=== PATIENT | female | born 1980 | race Caucasian/White ===

== ENCOUNTER 2016-08-19 12:07 | Emergency (ER) | payer OTHER ==
[~2016-08-19] VITALS: Ht 160 cm; Wt 100.7 kg
[~2016-08-19 12:07] MED LIST: NEOM1SUS21 OP
[2016-08-19 12:10] VITALS: TEMP 37; Ht 160 cm; Wt 100.7 kg
[2016-08-19 13:10] VITALS: O2SAT 97
--- NOTE | 2016-08-19 13:10 | EMERGENCY ROOM VISIT NOTE ---
History First contact with patient: 12:49 Chief Complaint: CHEST PAIN Stated Complaint: CHEST PAIN, DIZZY, FORGETTING, CANT THINK Nursing Triage Summary: pt c/o pain around L breast and into L upper back and L arm, pt states pain is worse when she is stressed, pt states the pain is worse when she lays on L side and makes the pain worse, pt states it comes and goes, denies any injury, pt states she tires quickly History of Present Illness The patient is a 36 year old female who presents to the Emergency Room via private vehicle accompanied by daughter with complaints of "chest pain, dizzy, forgetting, can't think". The patient states that she has been stressed recently at her job, and of last week and Tuesday she felt anxious and jittery as well as nervous. She notes that she developed chest pain Tuesday into Tuesday. 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 She states that the chest pain has been intermittent but is continuing. She states last night she felt tired, and the left anterior chest pain worsened and radiates to her left back and down her left arm. 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 She also has intermittent headache and neck pain. She also feels tired. Sometimes she will feel dizzy. She rates the left anterior chest pain currently as a 5/10. She describes the pain as stabbing at times. She denies any shortness of breath, recent falls, injury, fevers, chills, history of blood clots, smoking, control, history of heart disease. She states that she will feel anxious when she is stressed. Review of Systems A complete 10-point Review of Systems was discussed with the patient, with pertinent positives and negatives listed in the History of Present Illness. All remaining Review of Systems questions can be considered negative unless otherwise specified. Past Medical/Surgical History Arm surgery in 2010 Family History Diabetes, high blood pressure, kidney disease or stones. Social History Smoking Status: Never Smoker Social History: Patient lives with daughter. She denies alcohol and tobacco use. Current/Historical Medications No Active Prescriptions or Reported Meds Allergies Coded Allergies: No Known Allergies (Unverified , 08/19/16) Physical Exam Vital Signs Date Time Temp Pulse Resp B/P Pulse Ox O2 Delivery O2 Flow Rate FiO2 08/19/16 17:00 60 18 128/68 99 Room Air 08/19/16 16:00 62 18 122/79 99 Room Air 08/19/16 15:49 57 08/19/16 15:00 62 20 120/74 99 Room Air 08/19/16 13:30 59 20 115/62 69 134/88 80 108/83 08/19/16 13:20 56 08/19/16 13:10 97 Room Air 08/19/16 12:10 37.0 102 20 129/96 97 Room Air Physical Exam VITAL SIGNS - Vital signs and nursing notes were reviewed. Patient is afebrile , normotensive, slightly tachycardic at a rate of 102 bpm and is saturating well on room air at 97%. GENERAL -36-year-old female appearing her stated age who is in no acute distress. Patient is nontoxic in appearance. There is a slight language barrier, and her daughter helps to translate and was present in the room upon my examination. Communicates well with provider and answers questions appropriately. SKIN - Without rashes. No petechial rashes. HEAD - NC/AT. EYES - PERRL with EOMI bilaterally. Sclera anicteric. Palpebral conjunctiva pink and moist with no injection noted. EARS - No deformities of external structures noted on gross examination bilaterally. No pain elicited with palpation of the tragus bilaterally. External auditory canals without discharge or otorrhea. Tympanic membranes pearly alarcon without retraction or bulging. No fluid or purulent material visualized behind the TM. Handle of malleus, umbo, cone of light, pars tensa/ flaccid all easily visualized. NOSE - Midline and without cyanosis. No epistaxis or purulent drainage noted. Septum midline without deviation or septal hematoma noted. MOUTH/OROPHARYNX - Without perioral cyanosis. Buccal mucosa pink and moist and without leukoplakia. Tongue midline with equal elevation of palate bilaterally. No tonsillar hypertrophy, erythema, or exudates noted. Fair dentition noted. NECK - Neck with FROM. Supple to palpation. No lymphadenopathy noted. No nuchal rigidity. No evidence of meningitis or encephalitis upon exam. The patient moves the head and neck without difficulty. LUNGS - Chest wall symmetric without accessory muscle use, intercostals retractions, or central cyanosis. Normal vesicular breath sounds CTA B/L. No wheezes, rales, or rhonchi appreciated. CARDIAC - RRR with S1/S2. No murmur, rubs, or gallops appreciated. Slight reproducible pain with palpation of the left anterior/left lateral chest. ABDOMEN - Abdominal contour without pulsations or visible masses. BS normoactive all four quadrants. No tenderness, palpable masses, hepatosplenomegaly, or ascites noted. EXTREMITIES - No clubbing or peripheral cyanosis. No pretibial edema present. + 5/5 strength noted in UE/LE bilaterally. NEUROLOGIC - Cranial nerves II through XII grossly intact. Sensory intact to light touch throughout. PSYCH - A&Ox3 and cooperates fully with examiner. Pt is very pleasant and interacts well with examiner. Medical Decision & Procedures ER Provider Diagnostic Interpretation: CHEST 2 VIEWS ROUTINE HISTORY: Atypical Chest pain COMPARISON: Chest 12/10/2011. FINDINGS: The lungs are clear. Cardiac silhouette is normal in size. No pleural effusions. No pneumothorax. IMPRESSION: No acute process. Electronically signed by: Jac Garner M.D. 08/19/2016 2:30 PM Dictated Date/Time: 08/19/2016 2:29 PM Laboratory Results 08/19/16 13:25 Red Blood Count 4.65, Mean Corpuscular Volume 85.6, Mean Corpuscular Hemoglobin 29.9, Mean Corpuscular Hemoglobin Concent 34.9, Mean Platelet Volume 11.2, Neutrophils (%) (Auto) 47.0, Lymphocytes (%) (Auto) 43.5, Monocytes (%) (Auto) 6.3, Eosinophils (%) (Auto) 2.5, Basophils (%) (Auto) 0.5, Neutrophils # (Auto) 3.77, Lymphocytes # (Auto) 3.50, Monocytes # (Auto) 0.51, Eosinophils # (Auto) 0.20, Basophils # (Auto) 0.04 08/19/16 13:25 Test 08/19/16 13:03 08/19/16 13:25 08/19/16 13:35 08/19/16 15:14 White Blood Count 8.04 K/uL (4.8-10.8) Red Blood Count 4.65 M/uL (4.2-5.4) Hemoglobin 13.9 g/dL (12.0-16.0) Hematocrit 39.8 % (37-47) Mean Corpuscular Volume 85.6 fL (80-100) Mean Corpuscular Hemoglobin 29.9 pg (25-34) Mean Corpuscular Hemoglobin Concent 34.9 g/dl (32-36) Platelet Count 260 K/uL (130-400) Mean Platelet Volume 11.2 fL (7.4-10.4) Neutrophils (%) (Auto) 47.0 % Lymphocytes (%) (Auto) 43.5 % Monocytes (%) (Auto) 6.3 % Eosinophils (%) (Auto) 2.5 % Basophils (%) (Auto) 0.5 % Neutrophils # (Auto) 3.77 K/uL (1.4-6.5) Lymphocytes # (Auto) 3.50 K/uL (1.2-3.4) Monocytes # (Auto) 0.51 K/uL (0.11-0.59) Eosinophils # (Auto) 0.20 K/uL (0-0.5) Basophils # (Auto) 0.04 K/uL (0-0.2) RDW Standard Deviation 42.3 fL (36.4-46.3) RDW Coefficient of Variation 13.5 % (11.5-14.5) Immature Granulocyte % (Auto) 0.2 % Immature Granulocyte # (Auto) 0.02 K/uL (0.00-0.02) Prothrombin Time 11.3 SECONDS (9.0-12.0) Prothromb Time International Ratio 1.1 (0.9-1.1) Activated Partial Thromboplast Time 29.1 SECONDS (21.0-31.0) Partial Thromboplastin Ratio 1.1 Anion Gap 11.0 mmol/L (3-11) Est Creatinine Clear Calc Drug Dose 128.9 ml/min Estimated GFR () 129.2 Estimated GFR (Non- 111.5 BUN/Creatinine Ratio 18.2 (10-20) Calcium Level 8.5 mg/dl (8.5-10.1) Total Bilirubin 0.5 mg/dl (0.2-1) Aspartate Amino Transf (AST/SGOT) 13 U/L (15-37) Alanine Aminotransferase (ALT/SGPT) 16 U/L (12-78) Alkaline Phosphatase 70 U/L (45-117) Total Protein 7.1 gm/dl (6.4-8.2) Albumin 3.3 gm/dl (3.4-5.0) Globulin 3.8 gm/dl (2.5-4.0) Albumin/Globulin Ratio 0.9 (0.9-2) Lipase 206 U/L (73-393) Thyroid Stimulating Hormone (TSH) 2.560 uIu/ml (0.300-4.500) Urine Color YELLOW Urine Appearance CLEAR (CLEAR) Urine pH 5.5 (4.5-7.5) Urine Specific [employer] 1.022 (1.000-1.030) Urine Protein NEG (NEG) Urine Glucose (UA) NEG (NEG) Urine Ketones NEG (NEG) Urine Occult Blood NEG (NEG) Urine Nitrite NEG (NEG) Urine Bilirubin NEG (NEG) Urine Urobilinogen NEG (NEG) Urine Leukocyte Esterase NEG (NEG) Bedside D-Dimer 193 ng/mlFEU (0-450) Bedside Troponin I 0.000 ng/ml (0-0.045) Medical Decision Patient was seen and evaluated as above. After obtaining a thorough history and physical examination the above workup was initiated. There was concern for cardiac and neurological causes therefore attention was directed at these regions. Chest x-ray results as above. I agree with radiologist findings. The initial troponin, and point care d-dimer were negative. The patient doesn' t have any significant risk factors for pulmonary embolism. No history of cardiac events. EKG reveals normal sinus rhythm, with sinus arrhythmia Rate of 69 bpm, without ectopy or ischemic change. EKG was then later repeated and revealed sinus bradycardia, rate of 53 bpm without ectopy or ischemic change. With the troponin, and d-dimer being negative without any evidence of EKG change I do not suspect any emergent causes, however in correlation with my attending examination do also feel that a stress echo would be warranted. My attending did speak with Dr. Waters, the assembly repairer and it was decided that the patient could have an echo tomorrow morning at 9, which was later changed to 10 AM so that prior authorization could be obtained. I do believe this is reasonable, given the duration leave that the patient can go home and rest and return for the stress echo. The patient was clinically appearing well throughout her stay. CBC reveals no leukocytosis or anemia. Coagulation studies within normal limits. Point care d-dimer was 193. CMP reveals no emergent evidence of kidney or liver function. Point care troponin was negative. Lipase and TSH was also within normal limits. UA was negative. Urine test was negative. She is to return tomorrow morning for stress echo, or sooner for new/concerning symptoms. She was educated upon today 's findings, had questions answered prior to discharge, and was discharged home in good condition. I suspect the patient is experiencing muscular skeletal chest wall pain. In evaluation treatment this patient the following differential diagnoses were entertained: Costochondritis, ACS, ulnar embolism, muscle strain, anxiety, among others. Impression Primary Impression: Chest wall pain Departure Information Dispostion Home / Self-Care Condition GOOD Prescriptions No Active Prescriptions or Reported Meds Referrals RV. Whiteside MD (PCP) Patient Instructions My [facility] Additional Instructions You were seen in the emergency part for chest pain. Lab work and imaging has ruled out any emergent cause. Your scheduled for 10:00 stress test tomorrow morning here at the hospital. Please come in to the main entrance, states her name and that your here for a stress test with Dr. Waters, at 1AM. This will be at the [facility] lab. Please arrive early to register. They are calling your insurance company to gain authorization. Please eat a light breakfast, and drink water tonight and tomorrow. Please follow up with her family doctor during today's visit. You may use [id number] pain medication for your chest wall pain. Please do not exceed packet recommendations. Please return to emergency department with any new/concerning symptoms.
[2016-08-19 13:35] LABS: BASO % 0.5 %; BASO ABS # 0.04 K/uL (0-0.2); COMPLETE YES; EOS % 2.5 %; HEMATOCRIT 39.8 % (37-47); IG% 0.2 %; LYMPH % 43.5 %; MEAN CELL VOLUME 85.6 fL (80-100); MEAN CORPUSCULAR HEMOGLOBIN 29.9 pg (25-34); MEAN CORPUSCULAR HGB CONC 34.9 g/dl (32-36); MEAN PLATELET VOLUME 11.2 fL (7.4-10.4); MONO % 6.3 %; PLATELET COUNT 260 K/uL (130-400); RED BLOOD COUNT 4.65 M/uL (4.2-5.4); WHITE BLOOD COUNT 8.04 K/uL (4.8-10.8)
[2016-08-19 13:46] LABS: INR 1.1 (0.9-1.1); PARTIAL THROMBOPLASTIN RATIO 1.1; PROTHROMBIN TIME (PATIENT) 11.3 SECONDS (9.0-12.0)
[2016-08-19 13:52] LABS: URINE APPEARANCE CLEAR (CLEAR); URINE BILIRUBIN NEG (NEG); URINE COLOR YELLOW; URINE NITRITE NEG (NEG); URINE PH 5.5 (4.5-7.5); URINE SPECIFIC GRAVITY 1.022 (1.000-1.030); UROBILINOGEN NEG (NEG); ZZUR CULT IF INDIC CLEAN CATCH NO
[2016-08-19 13:54] LABS: BUN/CREATININE RATIO 18.2 (10-20); CALCIUM 8.5 mg/dl (8.5-10.1); CREATININE 0.67 mg/dl (0.60-1.20)
[2016-08-19 13:55] LABS: MANUAL MICROSCOPIC REQUIRED? NO; REVIEW REQ? NO
[2016-08-19 14:04] LABS: ALB/GLOB RATIO 0.9 (0.9-2); THYROID STIMULATING HORMONE 2.56 uIu/ml (0.300-4.500)
--- NOTE | 2016-08-19 14:31 | DIAGNOSTIC IMAGING REPORT ---
CHEST 2 VIEWS ROUTINE HISTORY: Atypical Chest pain COMPARISON: Chest 12/10/2011. FINDINGS: The lungs are clear. Cardiac silhouette is normal in size. No pleural effusions. No pneumothorax. IMPRESSION: No acute process. Electronically signed by: Jac Garner M.D. 08/19/2016 2:30 PM Dictated Date/Time: 08/19/2016 2:29 PM
--- NOTE | 2016-08-19 16:33 | EMERGENCY ROOM VISIT NOTE ---
ED Visit Note First contact with patient: 12:49 36-year-old female for left-sided chest pain was fully evaluated by Shaka Garcia PA-C. Please see his note. I also independently evaluated the patient. The patient does not appear to have cardiac pain. Nonetheless I remain concerned and therefore a stress echo was ordered. That will be done tomorrow morning at 9 AM. In the meantime the patient is to rest at home.
[2016-08-19 17:00] VITALS: BP 128/68; PULSE 60; O2SAT 99
== END 2016-08-19 17:28 | disposition home or self-care (01) ==
LOC: C.EDB 12:08
DX: R07.89 Other chest pain (principal); R00.1 Bradycardia, unspecified; Z98.890 Other specified postprocedural states; Z88.3 Allergy status to other anti-infective agents; Z82.49 Family history of ischemic heart disease and other diseases of the circulatory system; Z84.1 Family history of disorders of kidney and ureter

== ENCOUNTER → 2016-08-20 | Outpatient (CLI) | payer OTHER ==
--- NOTE | 2016-08-20 13:25 | EXERCISE STRESS ECHO ---
*NOTICE TO RECEIVING LIBERTARIAN AGENCY This information is strictly Confidential and protected under [place] law. [place] law prohibits you from making any further disclosure of this information unless further disclosure is expressly permitted by the written consent of the person to whom it pertains or is authorized by law. A general authorization for the release of medical or other information is not sufficient for this purpose. Hospital accepts no responsibility if the information is made available to any other person, INCLUDING THE PATIENT. Interpretation Summary * Name: DERIC MANZANARES Study Date: 08/20/2016 10:41 AM BP: 125/70 mmHg * Patient Location: [facility] HR: 67 * : 1980 (M/d/yyyy) Gender: Female Height: 63 in * Age: 36 yrs Ethnicity: [place] Weight: 220 lb * Performed By: Virginia Muse RDCS * * Reason For Study: Chest pain * BSA: 2.0 m2 * -- Conclusions -- * Normal stress echocardiogram at 12 METS and a peak heart rate of 92% predicted maximum. * Constant chest discomfort throughout the study. * No ECG changes. * Baseline echocardiogram notes normal left ventricular systolic function without wall motion abnormalities. Procedure Details * ECHOEX, CPT #44535 Left Ventricle * Left ventricular systolic function is normal. * Ejection Fraction = 55-60%. * Resting wall motion: Normal. Stress wall motion: Appropriate increase in Left ventricular systolic function and decrease in cavity size. No stress induced segmental wall motion abnormalities. Stress Parameters * The baseline ECG displays normal sinus rhythm. * Stress ECG: No ST changes. No arrhythmias. * The stress portion of this study was personally supervised by the undersigned interpreting physician. * Rest heart rate was '67' BPM. * Rest blood pressure was '125/70' * Maximum heart rate achieved was 169 bpm. * Maximum heart rate was 92 % of maximum age-predicted heart rate. * Maximum blood pressure was '157/68' * Total exercise time was '10:13' * Maximum exercise MET level achieved was '12.00' METS * Maximum treadmill speed was '4.20' miles per hour. * Maximum treadmill elevation was '16.00'% grade. * Exercise was terminated due to 'achieving target heart rate'
== END | disposition home or self-care (01) ==
LOC: C.CPL 10:07
PROVIDERS: ATTEND Emergency Medicine
DX: R07.9 Chest pain, unspecified (principal)